=== PATIENT | female | born 1975 | race Caucasian/White ===

== ENCOUNTER 2025-02-13 07:57 | Emergency (ER) | payer MEDICAID ==
[~2025-02-13] VITALS: Ht 162.6 cm; Wt 51.3 kg
[2025-02-13 08:26] VITALS: BP 137/88; TEMP 98.3
[2025-02-13] MEDS ORDERED: DOXY100C2 PO (09:03)
[2025-02-13] MEDS ORDERED: CEPH-570 PO (09:03)
[2025-02-13] MEDS ORDERED: LEVO750T46 PO (09:03)
[2025-02-13 09:35] VITALS: O2SAT 98
== END 2025-02-13 09:51 | disposition home or self-care (01) ==
LOC: ER 08:00
DX: S91.351D Open bite, right foot, subsequent encounter (principal); M79.671 Pain in right foot; E78.5 Hyperlipidemia, unspecified; X58.XXXD Exposure to other specified factors, subsequent encounter
CPT/HCPCS: 73630-TC